=== PATIENT | female | born 2000 | race African-American/Black ===

== ENCOUNTER 2021-03-04 13:38 | Emergency (ER) | payer BC, OTHER ==
[2021-03-04] MEDS ORDERED: Ondansetron ODT 4 MG TAB ONE (14:44)
[2021-03-04] MEDS ORDERED: Acetaminophen 500 MG TAB ONE (14:44)
[2021-03-04] MEDS ORDERED: Ibuprofen 800 MG TAB ONE (16:59)
== END 2021-03-04 17:32 | disposition home or self-care (01) ==
LOC: ERS 13:38
DX: J02.0 Streptococcal pharyngitis (principal)
CPT/HCPCS: 99283; Q0162